=== PATIENT | female | born 1935 | race Caucasian/White ===

== ENCOUNTER 2021-04-28 10:30 | Emergency (ER) | payer MEDICARE, OTHER ==
[~2021-04-28] VITALS: Ht 160 cm; Wt 64.4 kg
[2021-04-28] MEDS ORDERED: CARVEDILOL12.5 MG PO (10:45)
[2021-04-28] MEDS ORDERED: HYDRALAZINE 2525 MG PO (10:46)
[2021-04-28] MEDS ORDERED: CLONIDINE HCL0.1 MG PO (10:46)
[2021-04-28] MEDS ORDERED: LOSARTAN POTAS100 MG PO (10:46)
[2021-04-28] MEDS ORDERED: LEVOTHYROXINE112 MC1 PO (10:47)
[2021-04-28] MEDS ORDERED: NIFEDIPINE ER60 M1 PO (10:47)
[2021-04-28] MEDS ORDERED: FENOFIBRATE160 MG PO (10:47)
[2021-04-28] MEDS ORDERED: ZOCOR 20 MG TAB20 M1 PO (10:48)
[2021-04-28 11:03] LABS: HEMATOCRIT 40.1 % (37.0-47.0); HEMOGLOBIN 13.3 gm/dL (12.0-15.0); MCH 27.2 pg (26.0-34.0); MCHC 33.2 g/dL (28.0-37.0); MCV 81.9 fL (80.0-100.0); MPV 7.9 fl. (7.2-11.1); RBC 4.89 mil/uL (4.20-5.00); WBC 11.3 thou/uL (4.0-11.0)
[2021-04-28 11:13] LABS: CALCIUM 9.7 mg/dL (8.5-10.1); POTASSIUM 3.6 mmol/L (3.5-5.1)
--- NOTE | 2021-04-28 12:30 | EKG ---
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 : 1935 Requested By: Martinez Zimmerman Order Number: [id number] MD: Randall Chandra Measurements Intervals [place] Rate: 79 P: 43 PA: 196 QRS: -16 QRSD: 104 T: -12 QT: 404 QTc: 464 Interpretive Statements Sinus rhythm Borderline left axis deviation RSR' in V1 or V2, probably normal variant Borderline ST depression, lateral leads No previous ECG available for comparison Electronically Signed On 04-28-2021 12:30:18 [employer] by Randall Chandra [email or web address] <ELECTRONICALLY SIGNED> By: Randall Chandra MD, [facility] 04/28/21 1230 1113 1113 Randall Chandra MD, [facility] /EPI
[2021-04-28 12:56] VITALS: BP 211/85
[2021-04-28] MEDS ORDERED: CARVEDILOL25 MG PO (13:00)
== END 2021-04-28 12:56 | disposition home or self-care (01) ==
LOC: M.ERS 10:30
PROVIDERS: Emergency Medicine Emergency Medical Services
DX: I10 Essential (primary) hypertension (principal); E03.9 Hypothyroidism, unspecified; E78.5 Hyperlipidemia, unspecified; Z79.899 Other long term (current) drug therapy